=== PATIENT | male | born 1935 | race Hispanic/Latino ===

== ENCOUNTER 2018-03-05 08:58 | Observation (INO) | payer MEDICARE ==
[2018-03-02 12:39] LABS: BASOPHILS # (AUTO) 0.1 (0.0-0.1); BASOPHILS % 0.7 % (0.0-1.0); EOSINOPHILS # (AUTO) 0.1 (0.0-0.4); EOSINOPHILS % 1.6 % (0.0-6.0); HEMATOCRIT 38.3 % (38.2-49.6); HEMOGLOBIN 12.7 g/dL (14.0-18.0); LYMPHOCYTES # (AUTO) 1.6 (1.0-3.2); LYMPHOCYTES % 17.5 % (18.0-39.1); MEAN CORPUSCULAR HEMOGLOBIN 29.2 pg (28-32); MEAN CORPUSCULAR HGB CONC 33.2 g/dL (31-35); MONOCYTES # (AUTO) 0.6 (0.2-0.8); MONOCYTES % 6.5 % (4.4-11.3); NEUTROPHILS # (AUTO) 6.6 (2.1-6.9); NEUTROPHILS % 73.3 % (38.7-80.0); PLATELET COUNT 180 x10e3/uL (140-360); RED BLOOD COUNT 4.35 x10e6/uL (4.3-5.7)
--- NOTE | 2018-03-02 12:52 | Diagnostic Imaging Report ---
EXAMINATION: PA and lateral views of the chest. COMPARISON: None CLINICAL HISTORY: Bladder outlet obstruction DISCUSSION: Lines/tubes: None. Lungs: Scattered calcified granuloma. No consolidation. No edema. Pleura: There is no pleural effusion or pneumothorax. Heart and mediastinum: The cardiomediastinal silhouette is normal. Bones and soft tissues: No acute bony abnormalities. IMPRESSION: No acute cardiopulmonary abnormalities. Signed by: Dr. Darion Sandoval M.D. on 03/02/2018 12:49 PM
[2018-03-02 13:00] LABS: ANION GAP 13.9 mmol/L (8-16); BLOOD UREA NITROGEN 15 mg/dL (7-26); BUN/CREATININE RATIO 15 (6-25); CALCIUM 9.4 mg/dL (8.4-10.2); CARBON DIOXIDE 23 mmol/L (22-29); CHLORIDE 103 mmol/L (98-107); CREATININE, SERUM 1.01 mg/dL (0.72-1.25); EST GLOMERULAR FILTRATION RATE > 60 ML/MIN (60-); GLUCOSE 176 mg/dL (74-118); POTASSIUM 3.9 mmol/L (3.5-5.1); SODIUM 136 mmol/L (136-145)
[~2018-03-05] VITALS: Ht 172.7 cm; Wt 95.4 kg
[~2018-03-05 08:58] MED LIST: ASPIR 8181 MG PO; DOXAZOSIN MESYLA8 MG PO; FINASTERIDE5 MG PO; GLIPIZIDE10 MG PO; HYDROCHLOROTH12.5 MG PO; INVOKANA PO; JANUVIA100 MG PO; LISINOPRIL5 MG PO; METFORMIN HCL1000 MG PO; PLAVIX75 MG PO; PRAVASTATIN SOD40 MG PO; TAMSULOSIN HCL0.4 MG PO; VESICARE5 MG PO
[2018-03-05] MEDS ORDERED: CEFTRIAXONE SOD 1 GM VIAL ONE (09:17)
[2018-03-05 13:20] VITALS: BP 152/73
[2018-03-05 14:30] VITALS: BP 152/73
[2018-03-05] MEDS ORDERED: ACETAMINOPHEN/CODEINE 300MG - 30MG TAB PO PRN ×2 (15:45)
[2018-03-05] MEDS ORDERED: DEXTROSE 5%/0.45% SOD CHL 1,000 ML IV ONE (15:45)
[2018-03-05 16:00] VITALS: BP 117/58
[2018-03-05] MEDS ORDERED: FENTANYL CITRATE/PF 100MCG/2 ML INJ ONE (18:17)
[2018-03-05] MEDS ORDERED: LIDOCAINE HCL 2% LOCAL INJ 5 ML SDV VIAL INJ ONE (19:12)
[2018-03-05] MEDS ORDERED: ONDANSETRON HCL INJ 2 MG/ML VIAL ONE (19:12)
[2018-03-05] MEDS ORDERED: DEXAMETHASONE SOD PHOS INJ 4 MG/ML VIAL ONE (19:12)
[2018-03-05] MEDS ORDERED: EPHEDRINE SULFATE INJ 50 MG/10 ML SYR ONE (19:12)
[2018-03-05] MEDS ORDERED: ROCURONIUM BROMIDE 10 MG/ML 5ML VIAL ONE (19:12)
[2018-03-05] MEDS ORDERED: SEVOFLURANE INHAL SOLN 250 ML PEN BTL ONE (19:12)
[2018-03-05] MEDS ORDERED: PROPOFOL IV EMULSION 10 MG/ML 20 ML VIAL ONE (19:12)
[2018-03-05 20:00] VITALS: BP 122/52
[2018-03-05] MEDS: TRIMETHOPRIM/SULFAMETHOXAZOLE 160-800 MG TAB PO SCH (20:34)
[2018-03-05 21:00] VITALS: BP 122/52
[2018-03-05] MEDS ORDERED: TRIMETHOPRIM/SULFAMETHOXAZOLE 160-800 MG TAB PO SCH (21:00)
[2018-03-06] VITALS: BP 123/68
[2018-03-06 04:00] VITALS: BP 125/60
[2018-03-06 05:05] LABS: BLOOD UREA NITROGEN 18 mg/dL (7-26); BUN/CREATININE RATIO 17 (6-25); CALCIUM 9.5 mg/dL (8.4-10.2); CARBON DIOXIDE 21 mmol/L (22-29); CHLORIDE 103 mmol/L (98-107); CREATININE, SERUM 1.08 mg/dL (0.72-1.25); EST GLOMERULAR FILTRATION RATE > 60 ML/MIN (60-); GLUCOSE 192 mg/dL (74-118); SODIUM 137 mmol/L (136-145)
[2018-03-06] MEDS ORDERED: INVOKANA 300 MG PO SCH (07:30)
[2018-03-06 07:44] VITALS: BP 145/68
[2018-03-06] MEDS ORDERED: METFORMIN HCL 500 MG TAB CR PO SCH (08:00)
[2018-03-06 08:49] VITALS: BP 145/68
[2018-03-06] MEDS ORDERED: SITAGLIPTIN 100 MG TAB PO SCH (09:00)
[2018-03-06] MEDS ORDERED: LISINOPRIL 10 MG TAB PO SCH (09:00)
[2018-03-06] MEDS: TRIMETHOPRIM/SULFAMETHOXAZOLE 160-800 MG TAB PO SCH (09:00)
[2018-03-06] MEDS ORDERED: SIMVASTATIN 20 MG TAB PO SCH (21:00)
--- NOTE | 2018-03-16 01:08 | Operative Report ---
DATE OF PROCEDURE: March 05, 2018 PREOPERATIVE DIAGNOSIS: Bladder outlet obstruction with overactive bladder. POSTOPERATIVE DIAGNOSIS: Bladder outlet obstruction with overactive bladder. PROCEDURES PERFORMED 1. Cystoscopy. 2. Transurethral resection of the prostate. ANESTHESIA: General anesthesia. ESTIMATED BLOOD LOSS: Minimal. INDICATIONS: Mr. Johnson is an 83-year-old man with a long history of bladder outlet obstruction which is finally unresponsive to medical management. He now presents for definitive surgical management of this problem. OPERATIVE PROCEDURE IN DETAIL: The patient brought into the operating room, placed in supine position. After administration of general anesthesia, he was placed in dorsal lithotomy position and prepped and draped in the usual sterile fashion. Cystourethroscopy was performed using a 21-English cystoscope. The anterior and posterior urethrae were noted to be normal. The prostate revealed evidence of trilobar hyperplasia with moderate elevation of the median bar. The bladder was entered without difficulty. Upon entrance into the bladder, the ureteral orifices were in normal anatomical position and produced clear efflux. There were grade 2 trabeculations throughout with early cellule formation. There were no mucosal lesions identified or stones seen in the bladder. The bladder was left full and the cystoscope and sheath were removed. A 24-English resectoscope sheath was placed in a retrograde fashion and resection of the prostate was performed. Beginning at the 1 o'clock position and proceeding in a clockwise fashion down to the 6 o'clock position, all of the adenomatous tissue between the bladder neck and the veru was resected down to the level of the surgical capsule. No gross penetration or perforation of the capsule was identified. Hemostasis was obtained using electrocautery device. Similar procedure was performed on the contralateral side in a counterclockwise fashion, again beginning at the 11 o'clock position and ending in 6 o'clock position. Again, hemostasis was obtained using electrocautery device and no gross penetration or perforation of the capsule was identified. The residual adenomatous tissue seen on the roof and floor of the gland was then resected free. The [employer] evacuator was used to remove all chips and these were sent to pathology for microscopic analysis. Once adequate hemostasis was secured, the bladder was left full and the resectoscope and the sheath were removed without difficulty. The patient was noted to have a brisk urinary flow with coude. A 24-English 3-way coude catheter was then placed in the bladder and the balloon inflated with 45 mL of sterile water. The urinary efflux was noted to be blood tinged. The patient was returned to supine position and anesthesia was reversed. He was transferred to a bed and taken to the postanesthesia care unit in good condition. Of note, the needle and instrument counts were correct at the conclusion of the case. Job#: [id number]
== END 2018-03-06 12:13 | disposition home or self-care (01) ==
LOC: OR 08:58 → PACU V 13:28 → MED/SURG2 14:25
PROVIDERS: ADMIT Urology; ATTEND Urology
DX: N32.0 Bladder-neck obstruction (principal); F41.9 Anxiety disorder, unspecified; E11.9 Type 2 diabetes mellitus without complications; I10 Essential (primary) hypertension; N40.1 Benign prostatic hyperplasia with lower urinary tract symptoms; N13.8 Other obstructive and reflux uropathy; Z79.84 Long term (current) use of oral hypoglycemic drugs; Z83.3 Family history of diabetes mellitus; Z01.812 Encounter for preprocedural laboratory examination; Z01.811 Encounter for preprocedural respiratory examination
CPT/HCPCS: 36415 ×3; 52630; 71046; 80048 ×2; 82948; 85025; 88305; 88342; 93005; G0378 ×2; J0696; J1100; J2001; J2405